=== PATIENT | male | born 1975 | race Caucasian/White ===

== ENCOUNTER → 2016-08-01 | Outpatient (REF) | payer OTHER | LOC: M LAB REF 10:31 | PROVIDERS: ATTEND Physician Assistant | DX: J02.9 Acute pharyngitis, unspecified (principal) ==

== ENCOUNTER → 2017-07-02 | Outpatient (REF) | payer OTHER | LOC: M LAB REF 12:11 | DX: J02.9 Acute pharyngitis, unspecified (principal) ==

== ENCOUNTER → 2017-10-03 | Outpatient (REF) | payer OTHER | LOC: M LABDRAW1 16:04 | DX: R00.2 Palpitations (principal) ==

== ENCOUNTER → 2020-01-07 | Outpatient (REF) | payer OTHER ==
[2020-01-07 17:00] LABS: BASO # 0.1 10^3/uL (0.0-0.2); BASO % 0.9 % (0.0-1.0); EOS # 0.3 10^3/uL (0.0-0.5); EOS % 4.7 % (0.0-3.0); HEMATOCRIT 45.2 % (42.0-52.0); HEMOGLOBIN 14.9 g/dl (13.5-17.5); LYMPH # 2.6 10^3/uL (1.5-5.0); LYMPH % 40.9 % (24.0-44.0); MEAN CORPUSCULAR HEMOGLOBIN 31.4 pg (27.0-33.0); MEAN CORPUSCULAR VOLUME 95.4 fl (80.0-96.0); MONO # 0.5 10^3/uL (0.0-0.8); MONO % 7.2 % (0.0-5.0); NEUTROPHILS # 2.9 10^3/uL (1.5-8.5); NEUTROPHILS % 46.1 % (36.0-66.0); PLATELET COUNT, AUTOMATED 269 10^3/uL (150-450); RED BLOOD COUNT 4.74 10^6/uL (4.30-6.10); WHITE BLOOD COUNT 6.4 10^3/uL (4.0-10.0)
[2020-01-07 17:40] LABS: ALT/SGPT 45 U/L (12-78); BILIRUBIN,TOTAL 0.4 MG/DL (0.2-1.0); BLOOD UREA NITROGEN 21 MG/DL (7-18); CALCIUM LEVEL 9.2 MG/DL (8.5-10.1); CARBON DIOXIDE LEVEL 29 MEQ/L (21-32); CHLORIDE LEVEL 102 MEQ/L (98-107); CHOLESTEROL LEVEL 271 MG/DL (<200); CREATININE FOR GFR 1.06 MG/DL (0.70-1.30); GLOMERULAR FILTRATION RATE > 60.0 (>60); GLUCOSE, FASTING 91 MG/DL (70-100); HDL CHOLESTEROL 49 MG/DL (>40); POTASSIUM SERUM 4.5 MEQ/L (3.5-5.1); SODIUM LEVEL 137 MEQ/L (136-145); TRIGLYCERIDES LEVEL 336 MG/DL (<150)
[2020-01-07 17:41] LABS: ALBUMIN 4.2 GM/DL (3.2-5.2); LDL CHOLESTEROL 155 MG/DL (<100); NON-HDL-C 222 MG/DL; TOTAL PROTEIN 7.8 GM/DL (6.4-8.2)
== END ==
LOC: M LABDRWAD 16:21
PROVIDERS: ATTEND Nurse Practitioner Family
DX: R53.83 Other fatigue (principal); J45.20 Mild intermittent asthma, uncomplicated

== ENCOUNTER 2020-03-11 19:52 | Emergency (ER) | payer BC, OTHER ==
[~2020-03-11] VITALS: Ht 175.3 cm; Wt 84.7 kg
[2020-03-11 19:54] VITALS: BP 140/68
[2020-03-11] MEDS ORDERED: ARIP1TAB4 (20:01)
[2020-03-11] MEDS ORDERED: BRIN1TAB3 (20:01)
--- NOTE | 2020-03-11 20:22 | REPVR ---
PROCEDURE INFORMATION: Exam: CT Head Without Contrast Exam date and time: 03/11/2020 8:10 PM Age: 45 years old Clinical indication: Injury or trauma; Fall; Blunt trauma (contusions or hematomas); Additional info: Fell and hit back of head on ice TECHNIQUE: Imaging protocol: Computed tomography of the head without contrast. Radiation optimization: All CT scans at this facility use at least one of these dose optimization techniques: automated exposure control; mA and/or kV adjustment per patient size (includes targeted exams where dose is matched to clinical indication); or iterative reconstruction. COMPARISON: No relevant prior studies available. FINDINGS: Brain: No intracranial hemorrhage or extra-axial fluid collection. No evidence of mass effect or midline shift. Hernandez-white matter differentiation is intact. Cerebral ventricles: No ventriculomegaly. Bones/joints: No acute osseus lesion or fracture. Paranasal sinuses: Visualized sinuses are unremarkable. No fluid levels. Mastoid air cells: Unremarkable. Soft tissues: Unremarkable. IMPRESSION: No acute intracranial pathology. Electronically signed by: Kam Barrett On 03/11/2020 20:22:54 PM
== END 2020-03-11 21:00 | disposition home or self-care (01) ==
LOC: M ED 19:52
DX: S06.0X0A Concussion without loss of consciousness, initial encounter (principal); W00.0XXA Fall on same level due to ice and snow, initial encounter; Y92.019 Unspecified place in single-family (private) house as the place of occurrence of the external cause; Y93.9 Activity, unspecified; Y99.9 Unspecified external cause status; F41.1 Generalized anxiety disorder

== ENCOUNTER → 2020-09-29 | Outpatient (CLI) | payer BC, OTHER ==
[~2020-09-29] MED LIST: ARIP1TAB4; BRIN1TAB3
[2020-09-29 15:25] LABS: BASO # 0.1 10^3/uL (0.0-0.2); BASO % 0.9 % (0.0-1.0); EOS # 0.3 10^3/uL (0.0-0.5); EOS % 3.7 % (0.0-3.0); HEMATOCRIT 44.6 % (42.0-52.0); HEMOGLOBIN 15.3 g/dl (13.5-17.5); LYMPH # 2.8 10^3/uL (1.5-5.0); LYMPH % 41.7 % (24.0-44.0); MEAN CORPUSCULAR HGB CONC 34.3 g/dl (32.0-36.5); MEAN CORPUSCULAR VOLUME 93.3 fl (80.0-96.0); MONO # 0.6 10^3/uL (0.0-0.8); MONO % 8.2 % (2.0-8.0); NEUTROPHILS # 3.1 10^3/uL (1.5-8.5); NEUTROPHILS % 45.4 % (36.0-66.0); PLATELET COUNT, AUTOMATED 284 10^3/uL (150-450); RED BLOOD COUNT 4.78 10^6/uL (4.30-6.10); WHITE BLOOD COUNT 6.7 10^3/uL (4.0-10.0)
[2020-09-29 15:57] LABS: FREE T3 3.5 PG/ML (2.2-4.0); FREE T4 1.05 NG/DL (0.76-1.46); THYROID STIMULATING HORMONE 1.6 uIU/ML (0.358-3.740)
== END ==
LOC: M PLALAB 13:32
PROVIDERS: ATTEND Anesthesiology Pain Medicine
DX: R53.83 Other fatigue (principal)

== ENCOUNTER 2021-06-10 20:53 | Emergency (ER) | payer BC, OTHER ==
[~2021-06-10] VITALS: Ht 175.3 cm; Wt 84.6 kg
[2021-06-10 20:55] VITALS: BP 132/72
[2021-06-10] MEDS ORDERED: BENZONATATE 100MG CAPSULE PO ONE (22:40)
[2021-06-10] MEDS ORDERED: ALBUTEROL 90 MCG/ACT 8GM HFA INHALER INH ONE (22:40)
[2021-06-10] MEDS ORDERED: predniSONE 20 MG TAB PO ONE (22:40)
[2021-06-11] MEDS ORDERED: PRED20TA PO (00:49)
[2021-06-11] MEDS ORDERED: DOXY-443 PO (00:49)
[2021-06-11] MEDS ORDERED: BENZ200C70 PO (00:49)
== END 2021-06-11 01:27 | disposition home or self-care (01) ==
LOC: M ED 20:53
DX: J20.9 Acute bronchitis, unspecified (principal); B34.8 Other viral infections of unspecified site; J45.909 Unspecified asthma, uncomplicated; F41.8 Other specified anxiety disorders; F17.200 Nicotine dependence, unspecified, uncomplicated; Z79.899 Other long term (current) drug therapy
CPT/HCPCS: 71046; 87798; 87804; 94640; 99283; J7512

== ENCOUNTER → 2021-08-25 | Outpatient (CLI) | payer BC, OTHER ==
[~2021-08-25] MED LIST changes: +BENZ200C70 PO; +DOXY-443 PO; +PRED20TA PO
[2021-08-25 10:23] LABS: HEMATOCRIT 44.2 % (42.0-52.0); HEMOGLOBIN 15.5 g/dl (13.5-17.5); MEAN CORPUSCULAR HEMOGLOBIN 32.3 pg (27.0-33.0); MEAN CORPUSCULAR HGB CONC 35.1 g/dl (32.0-36.5); MEAN CORPUSCULAR VOLUME 92.1 fl (80.0-96.0); PLATELET COUNT, AUTOMATED 290 10^3/uL (150-450); WHITE BLOOD COUNT 6.1 10^3/uL (4.0-10.0)
[2021-08-25 10:46] LABS: HEMOGLOBIN A1c 5.5 %
[2021-08-25 10:56] LABS: ALT/SGPT 33 U/L (12-78); BILIRUBIN,TOTAL 0.4 MG/DL (0.2-1.0); BLOOD UREA NITROGEN 27 MG/DL (7-18); CALCIUM LEVEL 9.5 MG/DL (8.5-10.1); CARBON DIOXIDE LEVEL 26 MEQ/L (21-32); CHLORIDE LEVEL 106 MEQ/L (98-107); CHOLESTEROL LEVEL 254 MG/DL (<200); CHOLESTEROL RISK RATIO 5.521 (<5); CREATININE FOR GFR 1.12 MG/DL (0.70-1.30); GLOMERULAR FILTRATION RATE > 60.0 (>60); GLUCOSE, FASTING 93 MG/DL (70-100); HDL CHOLESTEROL 46 MG/DL (>40); LDL CHOLESTEROL 161 MG/DL (<100); NON-HDL-C 208 MG/DL; POTASSIUM SERUM 4.6 MEQ/L (3.5-5.1); SODIUM LEVEL 140 MEQ/L (136-145); TOTAL PROTEIN 7.4 GM/DL (6.4-8.2); TRIGLYCERIDES LEVEL 233 MG/DL (<150)
[2021-08-26 18:07] LABS: TESTOSTERONE FREE (DIRECT) 11.8 pg/mL (6.8-21.5)
== END ==
LOC: M PLALAB 08:48
PROVIDERS: ATTEND Family Medicine
DX: E66.3 Overweight (principal); F41.9 Anxiety disorder, unspecified; R53.83 Other fatigue

== ENCOUNTER 2022-07-15 13:48 | Emergency (ER) | payer BC, OTHER ==
[~2022-07-15] VITALS: Ht 172.7 cm; Wt 78.1 kg
[2022-07-15 13:49] VITALS: BP 144/90
[2022-07-15] MEDS ORDERED: CEPH500C PO (15:48)
== END 2022-07-15 16:01 | disposition home or self-care (01) ==
LOC: M ED 13:48
DX: R22.31 Localized swelling, mass and lump, right upper limb (principal); F41.9 Anxiety disorder, unspecified; J45.909 Unspecified asthma, uncomplicated; Y92.009 Unspecified place in unspecified non-institutional (private) residence as the place of occurrence of the external cause; Y93.H2 Activity, gardening and landscaping; Z79.2 Long term (current) use of antibiotics

== ENCOUNTER → 2022-10-12 | Outpatient (CLI) | payer BC, OTHER ==
[~2022-10-12] MED LIST changes: +CEPH500C PO
[2022-10-12 07:33] LABS: HEMOGLOBIN 14.9 g/dl (13.5-17.5); MEAN CORPUSCULAR HEMOGLOBIN 32.3 pg (27.0-33.0); MEAN CORPUSCULAR HGB CONC 35.5 g/dl (32.0-36.5); MEAN CORPUSCULAR VOLUME 91.1 fl (80.0-96.0); PLATELET COUNT, AUTOMATED 250 10^3/uL (150-450); RED BLOOD COUNT 4.61 10^6/uL (4.30-6.10); WHITE BLOOD COUNT 6.8 10^3/uL (4.0-10.0)
[2022-10-12 08:01] LABS: ALKALINE PHOSPHATASE 73 U/L (46-116); ALT/SGPT 61 U/L (7.0-40); AST/SGOT 24 U/L (<34); BILIRUBIN,TOTAL 0.8 MG/DL (0.3-1.2); BLOOD UREA NITROGEN 20 MG/DL (9-23); CALCIUM LEVEL 9.1 MG/DL (8.5-10.1); CARBON DIOXIDE LEVEL 28 MMOL/L (20-31); CHLORIDE LEVEL 103 MMOL/L (98-107); CHOLESTEROL LEVEL 229 MG/DL (<200); CHOLESTEROL RISK RATIO 4.11 (<5); CREATININE FOR GFR 0.92 MG/DL (0.70-1.30); GLOMERULAR FILTRATION RATE > 60.0 (>60); GLUCOSE, FASTING 100 MG/DL (60-100); HDL CHOLESTEROL 55.7 MG/DL (>40); LDL CHOLESTEROL 125.9 MG/DL (<100); NON-HDL-C 173.3 MG/DL; POTASSIUM SERUM 4.2 MMOL/L (3.5-5.1); SODIUM LEVEL 139 MMOL/L (136-145); TOTAL PROTEIN 6.8 G/DL (5.7-8.2); TRIGLYCERIDES LEVEL 237 MG/DL (<150)
[2022-10-12 08:02] LABS: THYROID STIMULATING HORMONE 2.506 uIU/ML (0.55-4.78); TOTAL 25(OH) VITAMIN D 48.7 NG/ML (20.0-100.0)
[2022-10-12 08:03] LABS: VITAMIN B12 LEVEL 413 PG/ML (211-911)
[2022-10-12 08:28] LABS: HEMOGLOBIN A1c 5.1 % (4.0-6.0)
== END ==
LOC: M PLALAB 06:31 → M LAB 06:31
PROVIDERS: ATTEND Family Medicine
DX: F41.9 Anxiety disorder, unspecified (principal); R53.83 Other fatigue; E78.1 Pure hyperglyceridemia; M79.2 Neuralgia and neuritis, unspecified

== ENCOUNTER 2023-06-08 19:33 | Emergency (ER) | payer BC, OTHER ==
[~2023-06-08] VITALS: Ht 172.7 cm; Wt 74.0 kg
[2023-06-08 20:18] LABS: RED BLOOD COUNT 4.81 10^6/uL (4.30-6.10); WHITE BLOOD COUNT 9.9 10^3/uL (4.0-10.0)
[2023-06-08 20:19] LABS: BASO # 0.1 10^3/uL (0.0-0.2); BASO % 0.6 % (0.0-1.0); EOS # 0.1 10^3/uL (0.0-0.5); EOS % 0.7 % (0.0-3.0); HEMATOCRIT 43.1 % (42.0-52.0); HEMOGLOBIN 15.4 g/dl (13.5-17.5); LYMPH # 2.2 10^3/uL (1.5-5.0); LYMPH % 21.7 % (24.0-44.0); MEAN CORPUSCULAR HGB CONC 35.7 g/dl (32.0-36.5); MEAN CORPUSCULAR VOLUME 89.6 fl (80.0-96.0); MONO # 0.7 10^3/uL (0.0-0.8); MONO % 6.7 % (2.0-8.0); NEUTROPHILS # 6.9 10^3/uL (1.5-8.5); NEUTROPHILS % 70.1 % (36.0-66.0); PLATELET COUNT, AUTOMATED 266 10^3/uL (150-450)
[2023-06-08 20:45] LABS: CK-MB VALUE MASS < 1.0 NG/ML (<3.6)
[2023-06-08 20:46] LABS: BLOOD UREA NITROGEN 21 MG/DL (9-23); CALCIUM LEVEL 9.8 MG/DL (8.5-10.1); CARBON DIOXIDE LEVEL 26 MMOL/L (20-31); CHLORIDE LEVEL 103 MMOL/L (98-107); CPK CREATINE PHOSPHOKINASE 155 U/L (46-171); CREATININE FOR GFR 1.02 MG/DL (0.70-1.30); GLOMERULAR FILTRATION RATE > 60.0 (>60); GLUCOSE, FASTING 122 MG/DL (60-100); MB/CK RELATIVE INDEX 0.64 (< OR =4); SODIUM LEVEL 138 MMOL/L (136-145)
[2023-06-08] MEDS: CYCLOBENZAPRINE 10MG TABLET PO ONE (21:06)
[2023-06-08] MEDS: KETOROLAC 30 MG/ML 1ML VIAL IV ONE (21:06)
[2023-06-08] MEDS: diazePAM 10MG/2ML SYRINGE IV ONE (21:25)
[2023-06-08] MEDS ORDERED: ISOVUE-370 76% 100ML VIAL As Ordered ONE (21:40)
[2023-06-08] MEDS ORDERED: NAPR-837 PO (23:07)
[2023-06-08] MEDS ORDERED: CYCL-707 PO (23:07)
[2023-06-08 23:45] VITALS: BP 139/77; TEMP 98.4; O2SAT 96
[2023-06-09] MEDS ORDERED: CYCL-707 PO (07:57)
[2023-06-09] MEDS ORDERED: NAPR-885 PO (07:58)
== END 2023-06-09 | disposition home or self-care (01) ==
LOC: M ED 19:33
DX: S16.1XXA Strain of muscle, fascia and tendon at neck level, initial encounter (principal); X50.0XXA Overexertion from strenuous movement or load, initial encounter; F41.9 Anxiety disorder, unspecified; F10.10 Alcohol abuse, uncomplicated; Z79.1 Long term (current) use of non-steroidal anti-inflammatories (NSAID); Z79.891 Long term (current) use of opiate analgesic; Y99.9 Unspecified external cause status; Y92.9 Unspecified place or not applicable; Y93.9 Activity, unspecified
CPT/HCPCS: 70450; 70496; 70498; 71045; 72125; 80048; 82550; 82553; 84484; 85025; 93005; 93041; 94760; 96374; 96375; 99285; J1885; J3360; Q9967